=== PATIENT | female | born 1960 | race American Indian/Alaskan Native ===

== ENCOUNTER 2018-07-27 15:18 | Emergency (ER) | payer MEDICAID ==
[2018-07-27 15:26] VITALS: RESP 18
--- NOTE | 2018-07-27 15:37 | ED PDOC ---
Arrival/HPI - General Chief Complaint: Lower Extremity Problem/Injury Time Seen by Provider: 07/27/18 15:26 - History of Present Illness Narrative History of Present Illness (Text): 58 year old F c Past medical history Hypertension, Hypercholesterolemia p/w L knee pain x 3 days. States knee "gave out," and since then has felt unsteady. Reports associated swelling and pain which does not radiate and is worse with palpation or movement. Denies fever, trauma, vomiting. Past Medical History - Cardiac Hx Cardiac Disorders: Yes Hx Hypertension: Yes - Pulmonary Hx Respiratory Disorders: No - Neurological Hx Neurological Disorder: No - HEENT Hx HEENT Disorder: No - Renal Hx Renal Disorder: No - Endocrine/Metabolic Hx Endocrine Disorders: No - Hematological/Oncological Hx Blood Disorders: No - Integumentary Hx Dermatological Disorder: No - Musculoskeletal/Rheumatological Hx Musculoskeletal Disorders: No - Gastrointestinal Hx Gastrointestinal Disorders: No - Genitourinary/Gynecological Hx Genitourinary Disorders: No - Psychiatric Hx Psychophysiologic Disorder: No Hx Substance Use: No - Surgical History Hx Cholecystectomy: Yes Hx Tonsillectomy: Yes Other/Comment: cyst removal left breast - Anesthesia Hx Anesthesia: Yes Hx Anesthesia Reactions: No Family/Social History Family/Social History: No Known Family HX Smoking Status: Current Some Days Smoker Hx Alcohol Use: No Hx Substance Use: No Allergies/Home Meds Allergies/Adverse Reactions: Allergies No Known Allergies Allergy (Verified 07/27/18 15:26) Review of Systems - Physician Review All systems were reviewed & negative as marked: Yes - Review of Systems Constitutional: absent: Fevers Respiratory: absent: SOB Physical Exam - Physical Exam Narrative Physical Exam (Text): Gen: NAD Head: NC/AT Eyes: PERRL ENT: MMM Neck: Supple Chest: No tenderness CV: Regular rate Lungs: CTA b/l Abd: Soft, NT Back: No CVA tenderness Extremities: L knee with edema and general tenderness. FROM intact. Motor strength intact. Skin: No rash Neuro: Motor and sensation intact Vital Signs Temp Pulse Resp BP Pulse Ox 07/27/18 15:21 98.6 F 75 18 148/84 98 Medical Decision Making ED Course and Treatment: XR, toradol. XR negative for fracture or dislocation as read by me. JOSE wrap applied. F/u Primary care, return to emergency department for worsening pain, unable to range, fever, or any other problem. - RAD Interpretation Radiology Orders: 07/27/18 15:33 KNEE LEFT 2 VIEWS (AP & LAT) [RAD] Stat - Medication Orders Current Medication Orders: Discontinued Medications Ketorolac Tromethamine (Toradol) 60 mg IM STAT STA Stop: 07/27/18 15:34 Last Admin: 07/27/18 15:43 Dose: 60 mg MAR Pain Assessment Document 07/27/18 15:43 OCS (Rec: 07/27/18 15:44 OCS [id number]) Pain Reassessment Is this a pain reassessment? No Sleep Is patient sleeping during reassessment? No Presence of Pain Presence of Pain Yes Pain Scale Used Pain Scale Used Numeric Location Left, Right or Bilateral Left Pain Location Body Site Knee Description Description Constant Intensity of Pain at present 10 Aggravating Factors ADL's IM Administration Charges Document 07/27/18 15:43 OCS (Rec: 07/27/18 15:44 OCS [id number]) Injection Site MAR Injection Site Left Deltoid Charges for Administration # of IM Administrations 1 Disposition/Present on Arrival - Present on Arrival Any Indicators Present on Arrival: No History of DVT/PE: No History of Uncontrolled Diabetes: No Urinary Catheter: No History of Decub. Ulcer: No History Surgical Site Infection Following: None - Disposition Have Diagnosis and Disposition been Completed?: Yes Diagnosis: Knee swelling Disposition: HOME/ ROUTINE Disposition Time: 16:44 Patient Plan: Discharge Condition: STABLE Discharge Instructions (ExitCare): Knee Sprain (DC) Prescriptions: Famotidine [Pepcid] 1 tab PO BID #14 tab Ibuprofen [Motrin] 600 mg PO Q6 #25 tab Forms: [employer] ([place])
[2018-07-27 17:03] VITALS: BP 151/86; PULSE 74; TEMP 97.4; O2SAT 100
--- NOTE | 2018-07-27 17:51 | RAD ---
Date of service: 07/27/2018 PROCEDURE: Left Knee Radiographs. HISTORY: Pain. COMPARISON: None. FINDINGS: BONES: Normal. No fracture. JOINTS: Mild osteoarthritis. JOINT EFFUSION: None. OTHER FINDINGS: None. IMPRESSION: No evidence of acute fracture or dislocation.
== END 2018-07-27 17:02 | disposition home or self-care (01) ==
LOC: MERGE 15:18 → ED 15:18
DX: M25.462 Effusion, left knee (principal); E78.00 Pure hypercholesterolemia, unspecified; I10 Essential (primary) hypertension
CPT/HCPCS: 73560; 96372; 99282; J1885